=== PATIENT | male | born 1995 | race African-American/Black ===

== ENCOUNTER 2021-02-12 06:54 | Emergency (ER) | payer SELFPAY ==
[2021-02-12] MEDS ORDERED: Lidocaine 1% w/Epinephrine 1:100K 20 ML VIAL ONE (07:03)
[2021-02-12] MEDS ORDERED: Boostrix 0.5 ML (Tdap) VIAL ONE (07:12)
[2021-02-12] MEDS ORDERED: Bacitracin 1 PK ONE (07:31)
== END 2021-02-12 07:49 | disposition home or self-care (01) ==
LOC: ERS 06:54
DX: S61.210A Laceration without foreign body of right index finger without damage to nail, initial encounter (principal); F17.210 Nicotine dependence, cigarettes, uncomplicated; W45.8XXA Other foreign body or object entering through skin, initial encounter
CPT/HCPCS: 12002; 90471; 90715